=== PATIENT | female | born 1985 | race Caucasian/White ===

== ENCOUNTER 2018-08-01 17:04 | Emergency (ER) | payer SELFPAY ==
[~2018-08-01] VITALS: Ht 160 cm; Wt 72.6 kg
[2018-08-01 17:45] VITALS: BP 123/69
--- NOTE | 2018-08-01 18:21 | PHYS DOC ---
Past Medical History Past Medical History: Asthma, Other Additional Past Medical Histor: Spontaneous Pneumos twice Additional Past Surgical Histo: Right pluerectomy pluerdesis Alcohol Use: None Drug Use: None Adult General Chief Complaint Chief Complaint: LOWER EXTREMITY SWELLING [facility] Patient is a 32 year old female with history of asthma who presents today complaining of right foot swelling, redness warmth and pain that began this morning. Patient denies any known injury. She states she is 19 weeks 1 para 0. Denies any calf pain. She rates her pain as 3 out of 10. She describes the pain as a burning sensation. Review of Systems Review of Systems Constitutional: Denies fever or chills [] Eyes: Denies change in visual acuity, redness, or eye pain [] HENT: Denies nasal congestion or sore throat [] Respiratory: Denies cough or shortness of breath [] Cardiovascular: No additional information not addressed in HPI [] GI: Denies abdominal pain, nausea, vomiting, bloody stools or diarrhea [] : Denies dysuria or hematuria [] Musculoskeletal: Denies back pain or joint pain [] Integument: Reports right foot redness, swelling, pain. Neurologic: Denies headache, focal weakness or sensory changes [] All other systems were reviewed and found to be within normal limits, except as documented in this note. Allergies Allergies Allergies Coded Allergies Type Severity Reaction Last Updated Verified Sulfa (Sulfonamide Antibiotics) Allergy Intermediate 08/01/18 Yes Physical Exam Physical Exam Constitutional: Well developed, well nourished, no acute distress, non-toxic appearance. [] HENT: Normocephalic, atraumatic, bilateral external ears normal, oropharynx moist, no oral exudates, nose normal. [] Eyes: PERRLA, EOMI, conjunctiva normal, no discharge. [] Neck: Normal range of motion, no tenderness, supple, no stridor. [] Cardiovascular:Heart rate regular rhythm, no murmur [] Lungs & Thorax: Bilateral breath sounds clear to auscultation [] Abdomen: Bowel sounds normal, soft, no tenderness, no masses, no pulsatile masses. [] Skin: Warm, dry, no erythema, no rash. [] Back: No tenderness, no CVA tenderness. [] Extremities: No tenderness, no cyanosis, no clubbing, ROM intact, Right foot with mild edema. There is mild cellulitis on top of the right foot. + 2 right pedal pulse., Cap refill less than 2 seconds the right toes. Negative Homans sign to the right leg. Neurologic: Alert and oriented X 3, normal motor function, normal sensory function, no focal deficits noted. [] Psychologic: Affect normal, judgement normal, mood normal. [] Current Patient Data Vital Signs Vital Signs Date Time Temp Pulse Resp B/P (MAP) Pulse Ox O2 Delivery O2 Flow Rate FiO2 08/01/18 17:45 98.2 89 18 123/69 (87) 98 Room Air 98.2 Lab Values Laboratory Tests Test 08/01/18 18:15 Urine Color Yellow Urine Clarity Clear Urine pH 6.0 Urine Specific [place] >=1.030 Urine Protein Negative mg/dL (NEG-TRACE) Urine Glucose (UA) Negative mg/dL (NEG) Urine Ketones (Stick) Negative mg/dL (NEG) Urine Blood Negative (NEG) Urine Nitrite Negative (NEG) Urine Bilirubin Negative (NEG) Urine Urobilinogen Dipstick 1.0 mg/dL (0.2 mg/dL) Urine Leukocyte Esterase Negative (NEG) Urine RBC 0 /HPF (0-2) Urine WBC Occ /HPF (0-4) Urine Squamous Epithelial Cells Occ /LPF Urine Bacteria 0 /HPF (0-FEW) Urine Mucus Slight /LPF EKG EKG [] Radiology/Procedures Radiology/Procedures [] Course & Med Decision Making Course & Med Decision Making Pertinent Labs and Imaging studies reviewed. (See chart for details) This is a 32-year-old female patient presented to the ED today with cellulitis to the right foot. She is currently 19 weeks 1 para 0. Venous Doppler of the right lower extremity is negative for any acute findings. Tetanus is up-to-date. Urine analysis is negative for infection. Blood pressure 123/69. Patient was encouraged to follow-up with the PCP in the next 1-2 weeks. She was provided return precautions and discharged in stable condition. Dragon Disclaimer Dragon Disclaimer This electronic medical record was generated, in whole or in part, using a voice recognition dictation system. Departure Departure Impression: Primary Impression: Cellulitis of right foot Disposition: 01 HOME, SELF-CARE Condition: STABLE Referrals: NO PCP (PCP) Follow-up with your doctor in 1-2 weeks Patient Instructions: Cellulitis, [id number] Additional Instructions: You were evaluated in the emergency room and noted to have cellulitis of the right foot. Try to elevate the affected extremity. Ensure you complete your antibiotics. Follow-up with your doctor next week. Come back to the ED at any point symptoms worsen. Scripts Cephalexin (CEPHALEXIN) 500 Mg Tablet 1 TAB PO QID, #40 TAB Prov: CLAUDIA LEVY APRN 08/01/18 CLAUDIA LEVY APRN Aug 01, 2018 18:21
[2018-08-01 18:33] LABS: BILIRUBIN,URINE NEGATIVE (NEG); CLARITY,URINE CLEAR; COLOR,URINE YELLOW; NITRITE,URINE NEGATIVE (NEG); PROTEIN,URINE NEGATIVE (NEG-TRACE)
[2018-08-01 18:48] LABS: BACTERIA,URINE 0 /HPF (0-FEW); RBC,URINE 0 /HPF (0-2); SQUAMOUS EPITHELIAL CELL,UR OCC /LPF; WBC,URINE OCC /HPF (0-4)
[2018-08-01] MEDS ORDERED: CEPH500T PO (19:24)
--- NOTE | 2018-08-01 19:29 | RAD ---
Ultrasound venous Doppler INDICATION:rt leg pain/swelling TECHNIQUE: Grayscale, color Doppler and spectral waveform ultrasound images of the right lower extremities deep veins obtained. COMPARISON: None FINDINGS: The interrogated deep veins are compressible and demonstrate evidence of blood flow with normal respiratory variation and response to augmentation. IMPRESSION: No sonographic evidence of acute DVT of the right lower extremity deep veins. Electronically signed by: Wale Beaulieu DO (08/01/2018 7:26 PM) [facility]
[2018-08-01] MEDS ORDERED: DIPHTH,PERTUSS(ACELL),TET TOX 0.5 ML DISP.SYRIN. VAX IM ONE (19:30)
== END 2018-08-01 19:33 | disposition home or self-care (01) ==
LOC: ER 17:04
DX: O26.892 Other specified pregnancy related conditions, second trimester (principal); L03.115 Cellulitis of right lower limb; J45.909 Unspecified asthma, uncomplicated; Z88.2 Allergy status to sulfonamides; Z3A.19 19 weeks gestation of pregnancy
CPT/HCPCS: 81001; 93971; 99285-25

== ENCOUNTER 2019-09-05 04:15 | Emergency (ER) | payer OTHER ==
[~2019-09-05] VITALS: Ht 157.5 cm; Wt 72.6 kg
[~2019-09-05 04:15] MED LIST: CEPH500T PO
[2019-09-05 04:16] VITALS: BP 134/72
--- NOTE | 2019-09-05 05:31 | PHYS DOC ---
Past Medical History Past Medical History: Asthma, Other Additional Past Medical Histor: Spontaneous Pneumos twice Additional Past Surgical Histo: Right pluerectomy pluerdesis Alcohol Use: None Drug Use: None Adult General Chief Complaint Chief Complaint: RING REMOVAL [facility] HPI Patient is a 33 year old f cant get ring off has been getting tighter for awhile last two hours painful swollen finger. Review of Systems Review of Systems Constitutional: Denies fever or chills [] Eyes: Denies change in visual acuity, redness, or eye pain [] HENT: Denies nasal congestion or sore throat [] Respiratory: Denies cough or shortness of breath [] Cardiovascular: No additional information not addressed in HPI [] GI: Denies abdominal pain, nausea, vomiting, bloody stools or diarrhea [] : Denies dysuria or hematuria [] Musculoskeletal: Denies back pain or joint pain [] Integument: Denies rash or skin lesions [] Neurologic: Denies headache, focal weakness or sensory changes [] Endocrine: Denies polyuria or polydipsia [] All other systems were reviewed and found to be within normal limits, except as documented in this note. Allergies Allergies Allergies Coded Allergies Type Severity Reaction Last Updated Verified Sulfa (Sulfonamide Antibiotics) Allergy Intermediate 08/01/18 Yes Physical Exam Physical Exam Constitutional: Well developed, well nourished, no acute distress, non-toxic appearance. [] HENT: Normocephalic, atraumatic, bilateral external ears normal, oropharynx moist, no oral exudates, nose normal. [] Eyes: PERRLA, EOMI, conjunctiva normal, no discharge. [] Back: No tenderness, no CVA tenderness. [] Extremities: nurse in process of cutting off ring at my arrival mild to moderate swelling of affected finger, no injury after removal, rom intact Neurologic: Alert and oriented X 3, normal motor function, normal sensory function, no focal deficits noted. [] Psychologic: Affect normal, judgement normal, mood normal. [] Current Patient Data Vital Signs Vital Signs Date Time Temp Pulse Resp B/P (MAP) Pulse Ox O2 Delivery O2 Flow Rate FiO2 09/05/19 04:16 98.5 87 20 134/72 (92) 97 Room Air 98.5 EKG EKG [] Radiology/Procedures Radiology/Procedures [] Course & Med Decision Making Course & Med Decision Making Pertinent Labs and Imaging studies reviewed. (See chart for details) [] Dragon Disclaimer Dragon Disclaimer This electronic medical record was generated, in whole or in part, using a voice recognition dictation system. Departure Departure Impression: Primary Impression: Finger swelling Disposition: 01 HOME, SELF-CARE Condition: STABLE Additional Instructions: thank you for coming to the ER. please ice the finger as needed for swelling. FRANCA BROUSSARD MD Sep 05, 2019 05:31
== END 2019-09-05 04:51 | disposition home or self-care (01) ==
LOC: ER 04:15
DX: M79.645 Pain in left finger(s) (principal); R22.32 Localized swelling, mass and lump, left upper limb; J45.909 Unspecified asthma, uncomplicated
CPT/HCPCS: 99284